=== PATIENT | female | born 1990 | race American Indian/Alaskan Native ===

== ENCOUNTER 2022-03-19 19:15 | Emergency (ER) | payer MEDICAID ==
[2022-03-19 21:54] LABS: Color,Urine Colorless (Yellow)
[2022-03-19 22:01] LABS: HCG Qualitative,Urine Negative (Negative)
[2022-03-19 22:03] LABS: RBC,Urine < 1.0 /HPF (0.0-6.0); WBC,Urine < 1.0 /HPF (0.0-6.0)
[2022-03-20] MEDS ORDERED: ONDANSETRON 4 MG/2 ML INJ IV ONE (04:19)
[2022-03-20] MEDS ORDERED: KETOROLAC 30 MG/1 ML INJ IV ONE (04:19)
[2022-03-20] MEDS ORDERED: SODIUM CHLORIDE 0.9% 1000 ML 1,000 ML IV ONE (04:20)
--- NOTE | 2022-03-20 04:29 | Emergency Department Report ---
ED Abdominal Pain HPI - General Chief Complaint: Abdominal Pain Stated Complaint: LEFT ABD PAIN X2DAYS Time Seen by Provider: 03/20/22 04:24 Source: patient Mode of arrival: Ambulatory Limitations: No Limitations - History of Present Illness Initial Comments: Patient 32-year-old female who presents for left lower quadrant abdominal pain radiating to her left flank. Patient states increased urination frequency urgency and dysuria. Patient denies hematuria last menstrual cycle 2 weeks ago. Is been no fevers no chills no nausea or vomiting. Pain is rated at 7/10. Pain is exacerbated by movement bending twisting pain is relieved by nothing tried. MD Complaint: abdominal pain, flank pain - Related Data Previous Rx's Medication Instructions Recorded Last Taken Type Ketorolac [Toradol] 10 mg PO Q6H PRN #12 tab 03/20/22 Unknown Rx Tamsulosin [Flomax] 0.4 mg PO QDAY #7 cap 03/20/22 Unknown Rx Allergies Allergy/AdvReac Type Severity Reaction Status Date / Time No Known Allergies Allergy Verified 03/19/22 20:23 ED Review of Systems ROS: Stated complaint: LEFT ABD PAIN X2DAYS Other details as noted in HPI Constitutional: denies: chills, fever Eyes: denies: eye pain, eye discharge, vision change ENT: denies: ear pain, throat pain Respiratory: denies: cough, shortness of breath, wheezing Cardiovascular: denies: chest pain, palpitations Endocrine: no symptoms reported Gastrointestinal: abdominal pain, nausea. denies: diarrhea, constipation, hematemesis, melena, hematochezia Genitourinary: urgency, dysuria, frequency. denies: hematuria, discharge Musculoskeletal: back pain Skin: denies: rash, lesions Neurological: denies: headache, weakness, paresthesias Psychiatric: denies: anxiety, depression Hematological/Lymphatic: denies: easy bleeding, easy bruising ED Past Medical Hx - Past Medical History Previous Medical History?: Yes Additional medical history: GALLSTONES - Surgical History Past Surgical History?: Yes Hx Cholecystectomy: Yes - Social History Smoking Status: Unknown if ever smoked Substance Use Type: None - Medications Home Medications: Home Medications Medication Instructions Recorded Confirmed Last Taken Type Ketorolac [Toradol] 10 mg PO Q6H PRN #12 tab 03/20/22 Unknown Rx Tamsulosin [Flomax] 0.4 mg PO QDAY #7 cap 03/20/22 Unknown Rx ED Physical Exam - General Limitations: No Limitations General appearance: alert, in no apparent distress - Head Head exam: Present: atraumatic, normocephalic - Eye Eye exam: Present: normal appearance, PERRL, EOMI. Absent: nystagmus Pupils: Present: normal accommodation - ENT ENT exam: Present: mucous membranes moist - Neck Neck exam: Present: normal inspection, full ROM. Absent: tenderness, lymphadenopathy, thyromegaly - Respiratory Respiratory exam: Present: normal lung sounds bilaterally. Absent: respiratory distress, wheezes, stridor, chest wall tenderness - Cardiovascular Cardiovascular Exam: Present: regular rate, normal rhythm, normal heart sounds. Absent: systolic murmur, diastolic murmur, rubs, gallop - GI/Abdominal GI/Abdominal exam: Present: soft, tenderness, guarding (Mild left lower quadrant), normal bowel sounds. Absent: distended, rebound, rigid, bruit, hernia - Rectal Rectal exam: Present: deferred - External exam: Present: normal external exam. Absent: swelling, lesions, lacerations, ecchymosis - Extremities Exam Extremities exam: Present: normal inspection, full ROM, normal capillary refill - Back Exam Back exam: Present: normal inspection, full ROM, CVA tenderness (L). Absent: CVA tenderness (R), rash noted - Neurological Exam Neurological exam: Present: alert, oriented X3, CN II-XII intact, normal gait, reflexes normal. Absent: motor sensory deficit - Expanded Neurological Exam Expanded Patient oriented to: Present: person, place, time Speech: Present: fluid speech Motor strength exam: RUE: 5, LUE: 5, RLE: 5, LLE: 5 Best Eye Response (Jackie): (4) open spontaneously Best Motor Response ([place]): (6) obeys commands Best Verbal Response (Jackie): (5) oriented Jackie Total: 15 - Psychiatric Psychiatric exam: Present: normal affect, normal mood - Skin Skin exam: Present: warm, dry, intact, normal color. Absent: rash ED Course Vital Signs 03/19/22 20:20 Temperature 98.8 F Respiratory 18 Rate Blood Pressure 148/83 ED Medical Decision Making - Lab Data Result diagrams: 03/20/22 04:42 03/20/22 04:42 - Radiology Data Radiology results: report reviewed, image reviewed CT abdomen pelvis wo con INDICATION / CLINICAL INFORMATION: r/o obstructive renal stone. TECHNIQUE: Axial CT imaging of abdomen and pelvis was obtained without contrast. Coronal and sagittal reformatted imaging obtained and reviewed. All CT scans at this location are performed using CT dose reduction for ALARA by means of automated exposure control. COMPARISON: None available. FINDINGS: CT abdomen without contrast demonstrates normal appearance of the liver, spleen, pancreas, kidneys, and adrenal glands. Prior cholecystectomy. There is a nonobstructing 2 mm calculus in the right kidney. No hydronephrosis, however. Left kidney is normal. Abdominal aorta is unremarkable. CT pelvis without contrast demonstrates an enlarged lobulated uterus most likely secondary to fibroids. Uterus measures 14 cm x 9.4 cm. A normal appendix is present in the right lower quadrant. GI tract is unremarkable. Visualized lung bases are clear. No acute osseous abnormality noted. IMPRESSION: 1. Punctate nonobstructing right intrarenal calculus. 2. No acute finding identified within the abdomen or pelvis. 3. Enlarged lobulated myomatous uterus. Signer Name: Shabana Astorga MD Signed: 03/20/2022 6:32 AM Workstation Name: [id number] Transcribed By: JR Dictated By: Shabana Astorga MD Electronically Authenticated By: Shabana Astorga MD Signed Date/Time: 03/20/22631 DD/ 8 TD/TT: - Medical Decision Making CT abdomen and pelvis results 1. Punctate nonobstructing right intrarenal calculus. , 2. No acute finding identified within the abdomen or pelvis. 3. Enlarged lobulated myomatous uterus. Labs noted above pain is resolved to 1/10 with medications given in ED discharge plan diagnosis left ureteral stone 2 mm, plan DC home with prescriptions, follow-up with urology. Follow-up primary care doctor. Continue to follow [facility] for fibroid, return to emergency department should symptoms worsen. Patient verbalizes agreement and understanding of discharge plan. Patient be DC'd home in stable condition at this time. Critical care attestation.: If time is entered above; I have spent that time in minutes in the direct care of this critically ill patient, excluding procedure time. ED Disposition Clinical Impression: Renal calculus, left Disposition: 01 HOME / SELF CARE / HOMELESS Is pt being admited?: No Does the pt Need Aspirin: No Condition: Stable Instructions: Abdominal Pain (ED), Kidney Stones, [id number], Dietary Guidelines to Help Prevent Kidney Stones Additional Instructions: Take medications as prescribed, follow-up with urology, follow-up with primary care doctor, follow-up with your [facility] doctor in 3 to 5 days. Return to emergency department should symptoms worsen or unable to void. Prescriptions: Tamsulosin [Flomax] 0.4 mg PO QDAY #7 cap Ketorolac [Toradol] 10 mg PO Q6H PRN #12 tab PRN Reason: Pain Referrals: STEFFEN ESTRELLA MD [Staff Physician] - 3-5 Days Forms: Work/School Release Form(ED) Time of Disposition: 06:48
[2022-03-20 05:21] LABS: Basophils # (Auto) 0.1 K/mm3 (0.0-0.1); Basophils % (Auto) 0.8 % (0.0-1.8); Eosinophils # (Auto) 0.1 K/mm3 (0.0-0.4); Eosinophils % (Auto) 1.5 % (0.0-4.3); Hematocrit 33.3 % (30.3-42.9); Hemoglobin 11.1 gm/dl (10.1-14.3); Lymphocytes # (Auto) 2.3 K/mm3 (1.2-5.4); Lymphocytes % (Auto) 36.8 % (13.4-35.0); Mean Corpuscular HGB Conc 33 % (30-34); Mean Corpuscular Volume 89 fl (79-97); Monocytes # (Auto) 0.6 K/mm3 (0.0-0.8); Monocytes % (Auto) 8.9 % (0.0-7.3); Platelet Count 381 K/mm3 (140-440); Red Blood Count 3.75 M/mm3 (3.65-5.03); Red Cell Distribution Width 14.1 % (13.2-15.2)
[2022-03-20 05:34] LABS: Alanine Aminotransferase 18 units/L (7-56); Albumin 3.9 g/dL (3.9-5); Blood Urea Nitrogen 12 mg/dL (7-17); Calcium 8.7 mg/dL (8.4-10.2); Hemolysis Index 5
[2022-03-20 05:54] LABS: BUN/Creatinine Ratio 17
--- NOTE | 2022-03-20 06:37 | Cat Scan Report ---
CT abdomen pelvis wo con INDICATION / CLINICAL INFORMATION: r/o obstructive renal stone. TECHNIQUE: Axial CT imaging of abdomen and pelvis was obtained without contrast. Coronal and sagittal reformatte d imaging obtained and reviewed. All CT scans at this location are performed using CT dose reduction for ALARA by means of automated exposure control. COMPARISON: None available. FINDINGS: CT abdomen without contrast demonstrates normal appearance of the liver, spleen, pancreas, kidneys, a nd adrenal glands. Prior cholecystectomy. There is a nonobstructing 2 mm calculus in the right kidney . No hydronephrosis, however. Left kidney is normal. Abdominal aorta is unremarkable. CT pelvis without contrast demonstrates an enlarged lobulated uterus most likely secondary to fibroid s. Uterus measures 14 cm x 9.4 cm. A normal appendix is present in the right lower quadrant. GI tract is unremarkable. Visualized lung bases are clear. No acute osseous abnormality noted. IMPRESSION: 1. Punctate nonobstructing right intrarenal calculus. 2. No acute finding identified within the abdomen or pelvis. 3. Enlarged lobulated myomatous uterus. Signer Name: Shabana Astorga MD Signed: 03/20/2022 6:32 AM Workstation Name: [id number]
[2022-03-20 07:05] VITALS: BP 152/76
== END 2022-03-20 07:04 | disposition home or self-care (01) ==
LOC: ED 19:15
DX: N20.0 Calculus of kidney (principal); R30.0 Dysuria; R35.0 Frequency of micturition; Z90.49 Acquired absence of other specified parts of digestive tract
CPT/HCPCS: 36415; 74176; 80053; 81001; 81025; 85025; 96361; 96374; 96375; 99284; J1885; J2405; J7030